=== PATIENT | female | born 1930 | race Caucasian/White ===

== ENCOUNTER 2016-11-17 05:43 | Day surgery (SDC) | payer MEDICARE ==
--- NOTE | 2016-11-16 10:18 | HP ---
DATE OF CLINIC: 10/28/2016 XANDER HORTA : 1930 PLANNED PROCEDURE: Right Leg Mass Excision DATE OF SURGERY: November 17, 2016 SURGEON: Donny Butler M.D. HISTORY OF PRESENT ILLNESS Xander Horta is an 86 year old female. * Medication list reviewed with patient allergy list reviewed with patient. Mrs. Horta is in today with her daughter pre-operatively for her right distal anterior pre-tibial mass excision with Dr. Butler on 11/17/16. Patient presents in good spirits and is ready to proceed. She denies recent illness, change in health, or prior surgical complications. Her recent consult with Dr. Butler follows: 86-year-old female who is known to me for other orthopedic issues who presented for evaluation of a mass on the distal anterior leg. She reports having had quite a bit of swelling through the earlier part of the year and noticed this in the summer. It is painless. She had no specific injury or trauma to this area that she recalls. Workup has included radiographs showing multiple round, subcutaneous calcific densities from the ankle to the knee. She has a marker at the localization of the mass which seems to be distinct and between 2 of these densities and notable as soft tissue fullness. She is wondering about additional treatment options. We discussed both operative and non-operative management and she has elected to proceed with surgical intervention. She presents today preoperatively. She has had no recent illnesses. CURRENT MEDICATION * Adult Aspirin EC Low Strength 81 MG Tablet Delayed Release 1 once a day 0 days, 0 refills * Bisoprolol-Hydrochlorothiazide 5-6.25 MG Tablet 1 once a day 0 days, 0 refills * [facility] Poly Bacitracin 500-11391 UNIT/GM Ointment as needed 0 days, 0 refills * DiphenhydrAMINE HCl 25 MG Capsule 1/2 tablet every day 12.5mg PRN, 0 days, 0 refills * Doxazosin Mesylate 8 MG Tablet half a tablet every day 30 days, 0 refills * Fish Oil 1000 MG Capsule 1 twice a day 0 days, 0 refills * FLUoxetine HCl 10 MG Capsule 1 once a day 0 days, 0 refills * Levothyroxine Sodium 75 MCG Tablet 1 once a day 30 days, 0 refills * Meclizine HCl 25 MG Tablet 1 once a day 0 days, 0 refills * Montelukast Sodium Powder as directed 0 days, 0 refills * Multivitamin Women Tablet as directed 0 days, 0 refills * Nasacort Allergy 24HR 55 MCG/ACT Aerosol as directed 0 days, 0 refills * Petroleum Jelly Gel as needed 0 days, 0 refills * PriLOSEC OTC 20 MG Tablet Delayed Release 1 twice a day 0 days, 0 refills * Sertaline 50mg Tablet 1 once a day 0 days, 0 refills * Simvastatin 20 MG Tablet half a tablet every day 0 days, 0 refills * TraMADol HCl 50 MG Tablet as needed 0 days, 0 refills * Tylenol Extra Strength 500 MG Tablet as needed 0 days, 0 refills PAST MEDICAL/SURGICAL HISTORY Reported: Medical: Cholesterol problems. Bladder disease, kidney disease, joint problems Arthritis, and history of Arthritis. Surgical / Procedural: Surgical / procedural history Ovarian cancer 1989, Bladder repair 2003 ovarian cancer 07/1990 and Appendectomy 14 years old. Tests: Blood pressure was high. SOCIAL HISTORY Behavioral: Caffeine use and non-smoker never smoked. Smoking status: Never smoker. Right shoulder pain for years. 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 She has had some improvement at times with PT. On 09/29/10 she felt a pop as she was pushing on her car door. She had pain and ecchymosis which have resolved. She is now at her baseline of pain. ALLERGIES * Bandaging Tape Reaction: Skin Rashes/Hives * Chlorhexidine * Compazine * Formaldehyde * Hydrocodone * Imidazolidinyl Urea * Imidurea * rashida * Nitrofurantoin * PADS * Quaternium * Sulfa Drugs * [place] [employer] Reaction: Imidurea and quatemium. * Vicodin FAMILY HISTORY Cancer Heart disease REVIEW OF SYSTEMS Systemic: No fever and no recent weight change. Head: No head symptoms. Cardiovascular: No cardiovascular symptoms. Pulmonary: No pulmonary symptoms. Gastrointestinal: No gastrointestinal symptoms. Psychological: No psychological symptoms. Skin: No skin lesions and no rash. PHYSICAL FINDINGS * Vitals taken 10/28/2016 11:57 am BP-Sitting R 114/67 mmHg 100 - 120/56 - 80 BP Cuff Size Regular Pulse Rate-Sitting 68 bpm 50 - 100 Temp-Oral 97.1 F 96 - 101 Height 63.75 in 59 - 68 Weight 157 lbs 94 - 170 Body Mass Index 27.2 kg/m2 Body Surface Area 1.76 m2 Pain Level 0 Neurological: Motor: * Dominant Hand = Right Hand. Patient is in no acute distress, normal-appearing mood and affect. Evaluation of the right lower extremity shows a palpable area approximately 5cm proximal to the ankle, a well-defined subcutaneous mass 2 1/2 cm in diameter, somewhat mobile, slightly irregular. No overlying trophic skin changes. It seems distinct from the anterior tibialis tendon. It is completely NT. She has full active and passive motion of the ankle. Distal neurovascular exam is intact. She has no palpable popliteal or inguinal adenopathy. TESTS Ultrasound report reviewed and is consistent with a 1.7cm avascular complex cystic lesion. ASSESSMENT Subcutaneous mass right distal leg, uncertain etiology. This is almost certainly benign. Differential includes fibroma, granulomatous lesion, etc. Interestingly, she does have a history of an e-coli infection proximal to this treated with oral antibiotics. The sequela of this was some cutaneous discoloration and scarring. THERAPY * Patient fall risk screen positive. * Patient eligible for fall risk assessment. * Patient received fall risk assessment. PLAN Excision of right leg mass. Discussed with patient in detail the limitations, expectations as well as risks and possible complications of surgery including, but not limited to wound problems or infection, neurovascular injury, continued pain or recurrence of the mass that may require additional operative or non-operative treatment. Patient also realizes the perioperative risks including risks associated with anesthesia and would like to proceed. A full PAR conference was held, questions and concerns addressed and informed consent was obtained. Patient will be sent from my office for completion of the preoperative workup. CARE TEAM Tianna Lai MD [facility] CC: Tianna Lai MD RS/sg
[~2016-11-17 05:43] MED LIST: IV START KIT ONE; LACTATED RINGERS 1,000 ML ONE
[2016-11-17] MEDS ORDERED: CEFAZOLIN SODIUM 2 GRAM PREMIX 100 ML IV PRN (05:45)
[2016-11-17] MEDS ORDERED: MIDAZOLAM HCL 1 MG/ML 2ML VIAL ONE (06:47)
[2016-11-17] MEDS ORDERED: FENTANYL 100 MCG/2 ML VIAL ONE (06:47)
[2016-11-17] MEDS ORDERED: BUPIVACAINE 0.5% W/EPI SDV 30 ML VIAL ONE (06:54)
[2016-11-17] MEDS ORDERED: LIDOCAINE 1% (PRES FREE) 30 ML VIAL ONE (06:54)
[2016-11-17] MEDS ORDERED: LIDOCAINE 2% (PRES FREE) 5 ML VIAL ONE (07:10)
[2016-11-17] MEDS ORDERED: PROPOFOL 20 ML IV ONE (07:10)
[2016-11-17] MEDS ORDERED: ONDANSETRON 4 MG/2ML 2 ML VIAL IV PRN (08:24)
[2016-11-17] MEDS ORDERED: KETOROLAC TROMETHAMINE 15 MG/ML VIAL IV PRN (08:24)
[2016-11-17] MEDS ORDERED: ACETAMINOPHEN 325 MG TABLET PO PRN (08:24)
[2016-11-17] MEDS ORDERED: SODIUM CHLORIDE 0.9% 1,000 ML IV SCH (08:30)
--- NOTE | 2016-11-18 10:14 | OP ---
GLEN REIS [id number] : 1930 DATE OF SURGERY: November 17, 2016 PREOPERATIVE DIAGNOSIS: Right leg mass POSTOPERATIVE DIAGNOSIS: SAME PROCEDURE: Excisional biopsy, right leg mass. (presumptive synovial cyst) SURGEON: Donny Butler M.D. ESTIMATED BLOOD LOSS: 3 cc ANESTHESIA: Local/MAC TOURNIQUET TIME: Zero FLUIDS: IV fluid placed per anesthesia. DRAINS: None COMPLICATIONS: None SPECIMEN: Permanent histopathologic analysis INDICATIONS: Patient is an 86-year-old female with a 9 month history of a painless mass of her right anterolateral leg. Exam is consistent with this being somewhat cystic and mobile. Certainly most likely benign, but patient's desire and reasonable plan of action would be to consider excisional biopsy. PAR conference was held, questions and concerns addressed and informed consent obtained. For additional details please refer to dictated preoperative H&P. PROCEDURAL DESCRIPTION: Patient was taken to the OR, monitored sedation with monitored anesthesia. The right lower extremity was prepped and draped out in the usual sterile fashion. Preoperative IV antibiotics were given empirically. After sterile prep and drape I made a longitudinal incision directly overlying the approximate 2cm subcutaneous mass over the anterolateral leg. We infiltrated the area with 10cc of 0.50% Marcaine with epinephrine. Cystic mass was identified. This had some proximal and distal extension, but no obvious deep attachment to the fascia. There were 2 small calcifications within this. The cystic mass was contained. Fluid was consistent with synovial fluid. This was taken end block after careful circumferential dissection and sent for permanent histopathologic analysis. No other abnormalities were evident. Satisfied, we irrigated and closed in layers with interrupted 3-0 Vicryl and interrupted 4-0 nylon. A sterile soft compression dressing was applied. The patient was transferred to her hospital bed and sent to post anesthesia recovery in stable condition. She tolerated the procedure well. Sponge, instrument and needle counts were correct. TITA/mrw CC: Pel[place] Jenn Lai MD
--- NOTE | 2016-11-19 11:18 | SURGPATH ---
[facility] [address] [place] [id number] Patient Name: GLEN REIS MR#: [id number] : 1930 Gender: F Specimen #: [id number] Collected: 11/17/2016 Received: 11/18/2016 Reported: 11/19/2016 Submitting Phys: NELDA MENDEZ Copy To Phys: [facility] Clinical History / Pre-Operative Diagnosis: Right leg mass; rule out ganglion cyst Specimen Source / Surgical Procedure Performed: Right leg mass Interpretation: RIGHT LEG MASS, BIOPSY: - CONSISTENT WITH GANGLION Electronically Signed Out Saran Clifford M.D. Gross Description: The specimen is received in a formalin filled container labeled with the patient's name and "right leg mass". A lobular biopsy of yellow-higgins, fibroconnective and fatty tissue is 2.7 x 2.0 x 0.8 cm. Sectioning reveals a collapsed 1 cm thin-walled cystic space. Totally embedded in one cassette. Joe Newton PJim Microscopic Description: A slide reveals membranous tissue with focally attached fat. The inner lining of the cyst has features consistent with ganglion. 1: [id number]
== END 2016-11-17 09:10 | disposition home or self-care (01) ==
LOC: SDC 05:43
PROVIDERS: ATTEND Orthopaedic Surgery
PROC: 0LBN0ZZ Excision of Right Lower Leg Tendon, Open Approach (ICD-10-PCS; principal; 2016-11-17)
DX: M67.461 Ganglion, right knee (principal); Z79.82 Long term (current) use of aspirin; Z79.899 Other long term (current) drug therapy; Z88.8 Allergy status to other drugs, medicaments and biological substances; Z88.5 Allergy status to narcotic agent; Z88.2 Allergy status to sulfonamides